=== PATIENT | male | born 1945 | race Caucasian/White ===

== ENCOUNTER 2017-03-21 11:01 | Observation (INO) | payer MEDICARE ==
[2017-03-21 11:36] LABS: BASOPHILS % (AUTO) 1.2 % (0.0-5.0); HEMATOCRIT 45.9 % (42-54); LYMPHOCYTES % (AUTO) 19.5 % (21.0-51.0); MEAN CORPUSCULAR HEMOGLOBIN 32.3 pg (27.0-33.0); MEAN CORPUSCULAR HGB CONC 32.9 g/dL (32.0-36.0); MEAN CORPUSCULAR VOLUME 98.2 fL (79-99); MONOCYTES % (AUTO) 12.2 % (3.0-13.0); NEUTROPHILS % (AUTO) 66.1 % (40.0-77.0); NUCLEATED RED BLOOD CELLS 0.3 % (0.0-0.19); PLATELET COUNT (AUTO) 243 K/uL (130-400); RED BLOOD CELL COUNT(AUTO) 4.68 MIL/uL (4.50-6.20); RED CELL DISTRIBUTION WIDTH 17.1 % (11.0-15.5); WHITE BLOOD COUNT (AUTO) 8.8 K/uL (4.8-10.8)
[2017-03-21 11:40] LABS: CREATININE 1.3 mg/dL (0.5-1.5); POTASSIUM 5.6 mmol/L (3.5-5.1)
[2017-03-21 11:46] LABS: ALBUMIN 3.4 g/dL (3.5-5.0); TOTAL PROTEIN, SERUM 7.7 g/dL (6.0-8.3)
[2017-03-21 11:54] LABS: CREATINE KINASE MB 1.4 ng/mL (0.5-3.6)
[2017-03-21] MEDS ORDERED: IPRATROPIUM/ALBUTEROL SULFATE 3 ML SOLUTION IH ONE ×2 (12:47→20:14)
[2017-03-21 13:20] LABS: APPEARANCE,URINE Clear (CLEAR); BILIRUBIN,URINE Small (NEGATIVE); COLOR,URINE Dark Yellow (YELLOW); GLUCOSE, URINE (UA) Negative (NEGATIVE); KETONES,URINE Negative (NEGATIVE); LEUKOCYTE ESTERASE ,URINE Negative (NEGATIVE); NITRATE,URINE Negative (NEGATIVE); OCCULT BLOOD,URINE Negative (NEGATIVE); PROTEIN,URINE Trace (NEGATIVE)
[2017-03-21 13:20] LABS: ABG BASE EXCESS -1.8 mmol/L (-2.0-3.0); ABG HCO3 23.1 mmol/L (21.0-28.0); ABG OXYGEN SATURATION 96.7 % (95.0-99.0); ABG PCO2 40 mmHg (35-48)
[2017-03-21] MEDS ORDERED: ASPIRIN 325 MG TABLET ONE (13:33)
[2017-03-21] MEDS ORDERED: ENOXAPARIN SODIUM 100 MG/1 ML SQ ONE (13:33)
[2017-03-21] MEDS ORDERED: FUROSEMIDE 10 MG/ML 2ML VIAL ONE (13:33)
[2017-03-21 13:47] LABS: BACTERIA,URINE None Seen /HPF (None Seen); RBC,URINE None Seen /HPF (0-1); SQUAMOUS EPITHELIAL CELL,UR 0-2 /LPF (0-2); WBC,URINE None Seen /HPF (0-1)
[2017-03-21] MEDS ORDERED: FUROSEMIDE 10 MG/ML 2ML VIAL IV SCH (15:30)
[2017-03-21] MEDS ORDERED: SODIUM CHLORIDE 0.9% 1000ML 1,000 ML IV ONE ×2 (16:08→16:12)
[2017-03-21 16:47] LABS: POTASSIUM 4.7 mmol/L (3.5-5.1); TROPONIN I 0.09 ng/mL (0.00-0.06)
[2017-03-21] MEDS ORDERED: SODIUM CHLORIDE 0.9% 1000ML 1,000 ML IV SCH (20:00)
[2017-03-21] MEDS ORDERED: MAGNESIUM CHLORIDE 70 MG TABLET.SA PO SCH (21:00)
[2017-03-21] MEDS ORDERED: CARVEDILOL 6.25 MG TABLET PO SCH (21:00)
[2017-03-21 22:41] LABS: CREATINE KINASE MB 1.1 ng/mL (0.5-3.6); TROPONIN I 0.12 ng/mL (0.00-0.06)
[2017-03-22] MEDS: IPRATROPIUM/ALBUTEROL SULFATE 3 ML SOLUTION IH SCH ×2 (00:57→06:34)
[2017-03-22] MEDS ORDERED: FUROSEMIDE 40 MG TABLET ONE (07:23)
[2017-03-22] MEDS ORDERED: CARVEDILOL 12.5 MG TABLET PO ONE (07:24)
[2017-03-22] MEDS ORDERED: FUROSEMIDE 20 MG TABLET PO SCH (09:00)
[2017-03-22] MEDS ORDERED: LISINOPRIL 2.5 MG TABLET PO SCH (09:00)
[2017-03-22] MEDS ORDERED: ATORVASTATIN CALCIUM 10 MG TABLET PO SCH (09:00)
[2017-03-22] MEDS ORDERED: ASPIRIN 325 MG TABLET PO SCH (09:00)
[2017-03-22 10:25] LABS: ABG HCO3 23.6 mmol/L (21.0-28.0); ABG OXYGEN SATURATION 92.9 % (95.0-99.0); ABG PCO2 35 mmHg (35-48)
[2017-03-22] MEDS ORDERED: IPRATROPIUM/ALBUTEROL SULFATE 3 ML SOLUTION IH ONE (11:53)
== END 2017-03-22 12:00 | disposition home or self-care (01) ==
LOC: EDH 11:01 → EDHIP 16:15
PROVIDERS: ADMIT Internal Medicine Critical Care Medicine; ATTEND Internal Medicine Critical Care Medicine
DX: I13.0 Hypertensive heart and chronic kidney disease with heart failure and stage 1 through stage 4 chronic kidney disease, or unspecified chronic kidney disease (principal); I42.0 Dilated cardiomyopathy; I50.23 Acute on chronic systolic (congestive) heart failure; R41.0 Disorientation, unspecified; R23.0 Cyanosis; N18.3 Chronic kidney disease, stage 3 (moderate); J96.11 Chronic respiratory failure with hypoxia; J44.9 Chronic obstructive pulmonary disease, unspecified; E78.5 Hyperlipidemia, unspecified; E66.01 Morbid (severe) obesity due to excess calories; I95.1 Orthostatic hypotension; I73.89 Other specified peripheral vascular diseases; I34.0 Nonrheumatic mitral (valve) insufficiency; F17.290 Nicotine dependence, other tobacco product, uncomplicated; Z79.899 Other long term (current) drug therapy; Z79.82 Long term (current) use of aspirin; Z91.19 Patient's noncompliance with other medical treatment and regimen; Z95.0 Presence of cardiac pacemaker; Z95.810 Presence of automatic (implantable) cardiac defibrillator; Z99.81 Dependence on supplemental oxygen
CPT/HCPCS: 36415; 36600 ×2; 71045; 80053; 81001; 82550 ×3; 82553 ×3; 82803 ×2; 83874 ×2; 83880; 84132; 84484 ×3; 85025; 87040 ×2; 87804 ×2; 93005; 94640 ×4; 94664; 99284; G0378 ×20; J1650; J1940; J7030 ×2